=== PATIENT | male | born 1955 | race African-American/Black ===

== ENCOUNTER → 2016-10-24 | Outpatient (CLI) | payer OTHER ==
[~2016-10-24] MED LIST: AMOXICILLIN875 MG PO; ASPIRIN 32325 MG/TAB PO; CAVERJECT IMPU IC; CENTRUM SILVER1 TAB PO; CIALIS20 MG PO; CIALIS5 MG PO; CLEOCIN HCL300 MG PO; CRANBERRY1000 MG PO; CRESTOR20 MG PO; FLONASE NASAL S16 GM NS; LEXAPRO20 MG PO; LOPRESSOR 225 MG/TAB PO; LOW DOSE ASPIRI81 MG PO; MASON NATURAL1000 IU PO; MASON NATURAL1200 MG PO; NATURAL E400 IU PO; NATURAL POTASS595 MG PO; NORVASC 10MG10 MG PO; OMEPRAZOLE20 MG PO; PERCOCET 325 MG1 TA2 PO; PLAVIX 75MG TAB75 MG PO; PLETAL 100MG T100 MG PO; POTASSIUM GLUC595 MG PO; PRILOSEC 20MG20 MG PO; RT SPIRIVA18 MCG IH; SUPER EPA 1201200 MG PO; VIAGRA 25MG TAB25 MG PO; ZESTRIL40 MG PO; ZYRTEC 10MG10 MG PO; glucosamine; vit D; vit D2; vit E; vit c
== END ==
LOC: COL.RAD 14:00
DX: R26.89 Other abnormalities of gait and mobility (principal)
CPT/HCPCS: A9585

== ENCOUNTER → 2016-12-10 | Outpatient (CLI) | payer OTHER | LOC: COL.RAD 08:28 | DX: R31.0 Gross hematuria (principal); I70.0 Atherosclerosis of aorta; Z90.79 Acquired absence of other genital organ(s) | CPT/HCPCS: Q9967 ==

== ENCOUNTER 2016-12-13 10:35 | Day surgery (SDC) | payer OTHER ==
[2016-12-13] VITALS (10 sets, daily range): BP systolic 99–133; BP diastolic 65–74; PULSE 52–84; TEMP 97.8
[~2016-12-13] VITALS: Ht 183 cm; Wt 112.0 kg
[~2016-12-13 10:35] MED LIST changes: -AMOXICILLIN875 MG PO; -CENTRUM SILVER1 TAB PO; -CLEOCIN HCL300 MG PO; -PERCOCET 325 MG1 TA2 PO; -PRILOSEC 20MG20 MG PO
[2016-12-13] MEDS ORDERED: PRILOSEC 20MG20 MG PO (12:03)
[2016-12-13] MEDS ORDERED: LEXAPRO20 MG PO (12:05)
[2016-12-13] MEDS ORDERED: CENTRUM SILVER1 TAB PO (12:12)
[2016-12-13 12:26] LABS: INR 1.1 (0.8-3.0); PROTHROMBIN TIME 12.5 SECONDS (9.7-12.8)
[2016-12-13 12:27] LABS: HEMATOCRIT 42.6 % (42.0-52.0); HEMOGLOBIN 14.2 g/dl (13.5-18.0); MEAN CELL VOLUME 84 fl (80.0-100.0); MEAN CORPUSCULAR HEMOGLOBIN 28 pg (27.0-31.0); MEAN CORPUSCULAR HGB CONC 33 g/dl (33.0-37.0); MEAN PLATELET VOLUME 9.5 fl (7.4-10.4); PLATELET COUNT 267 K/mm3 (130-400); RED BLOOD COUNT 5.06 M/mm3 (4.20-5.60); REDCELL DISTRIBUTION WIDTH-CV 14.4 % (11.5-14.5); WHITE BLOOD COUNT 5.2 K/mm3 (4.8-10.8)
[2016-12-13 12:34] LABS: CALCIUM 9.5 mg/dL (8.4-10.2); CREATININE, serum 1.35 mg/dL (0.66-1.25)
== END 2016-12-13 18:49 | disposition home or self-care (01) ==
LOC: EUO 10:35 → COL.RAD 12:30 → EUO 18:49
PROVIDERS: Internal Medicine Interventional Cardiology
DX: I25.10 Atherosclerotic heart disease of native coronary artery without angina pectoris (principal); R94.39 Abnormal result of other cardiovascular function study; I73.9 Peripheral vascular disease, unspecified; I77.1 Stricture of artery; I95.1 Orthostatic hypotension; I10 Essential (primary) hypertension; E78.5 Hyperlipidemia, unspecified; J44.9 Chronic obstructive pulmonary disease, unspecified; Z87.891 Personal history of nicotine dependence; G47.30 Sleep apnea, unspecified
CPT/HCPCS: C1894; J2250; J3010; Q9967

== ENCOUNTER 2017-04-28 18:23 | Emergency (ER) | payer OTHER ==
[~2017-04-28] VITALS: Ht 182.9 cm; Wt 109.1 kg
[~2017-04-28 18:23] MED LIST changes: +CENTRUM SILVER1 TAB PO; +PRILOSEC 20MG20 MG PO
[2017-04-28 18:25] VITALS: TEMP 98.7
[2017-04-28] MEDS ORDERED: AMOXICILLIN875 MG PO (18:45)
[2017-04-28] MEDS ORDERED: PLETAL 100MG T100 MG PO (18:49)
[2017-04-28 19:03] LABS: BASO % 0.3 % (0.0-2.0); EOS % 0.1 % (0-4.0); GRAN # 10.5 (1.4-6.5); GRAN % 78.1 % (42.2-75.2); HEMATOCRIT 43.1 % (42.0-52.0); HEMOGLOBIN 14.9 g/dl (13.5-18.0); LYMPH # 1.9 (1.2-3.4); LYMPH % 13.8 % (20.0-51.0); MEAN CELL VOLUME 82 fl (80.0-100.0); MEAN CORPUSCULAR HEMOGLOBIN 28 pg (27.0-31.0); MEAN CORPUSCULAR HGB CONC 35 g/dl (33.0-37.0); MEAN PLATELET VOLUME 9.2 fl (7.4-10.4); MONO % 7.4 % (1.7-9.3); PLATELET COUNT 288 K/mm3 (130-400); RED BLOOD COUNT 5.27 M/mm3 (4.20-5.60); REDCELL DISTRIBUTION WIDTH-CV 14.3 % (11.5-14.5); WHITE BLOOD COUNT 13.5 K/mm3 (4.8-10.8)
[2017-04-28 19:16] LABS: ALBUMIN 4.2 gm/dL (3.5-5.0); C-REACTIVE PROTEIN 8.9 mg/dL (0.0-0.9); CALCIUM 9.2 mg/dL (8.4-10.2); CREATININE, serum 1.3 mg/dL (0.66-1.25); POTASSIUM 3.4 mmol/L (3.4-5.0); TOTAL PROTEIN 7.6 gm/dL (6.4-8.2)
[2017-04-28 20:01] VITALS: BP 155/81
[2017-04-28] MEDS ORDERED: CLEOCIN HCL300 MG PO (20:31)
[2017-04-28] MEDS ORDERED: PERCOCET 325 MG1 TA2 PO (20:31)
[2017-04-28 21:03] VITALS: PULSE 102
[2017-06-03] MEDS ORDERED: LEXAPRO20 MG PO (12:14)
== END 2017-04-28 21:05 | disposition home or self-care (01) ==
LOC: COL.ER 18:23
PROVIDERS: Physician Assistant
DX: K11.5 Sialolithiasis (principal); F32.9 Major depressive disorder, single episode, unspecified; E78.5 Hyperlipidemia, unspecified; I10 Essential (primary) hypertension; Z87.891 Personal history of nicotine dependence; Z98.890 Other specified postprocedural states
CPT/HCPCS: J7030; Q9967

== ENCOUNTER → 2017-04-29 | Outpatient (CLI) | payer OTHER ==
[~2017-04-29] MED LIST changes: +AMOXICILLIN875 MG PO; +CLEOCIN HCL300 MG PO; +PERCOCET 325 MG1 TA2 PO
== END ==
LOC: ZCOL.LAB 16:29
DX: K11.20 Sialoadenitis, unspecified (principal)

== ENCOUNTER → 2017-05-27 | Outpatient (CLI) | payer OTHER | LOC: COL.RAD 09:42 | DX: E04.1 Nontoxic single thyroid nodule (principal) ==

== ENCOUNTER → 2017-06-12 | Outpatient (CLI) | payer OTHER ==
[~2017-06-12] VITALS: Ht 182.9 cm; Wt 111.0 kg
[2017-06-12 09:30] VITALS: BP 151/76; PULSE 66
[2017-06-12 10:10] VITALS: BP 124/72; PULSE 59
== END ==
LOC: COL.RAD 06-05 09:00
DX: E04.1 Nontoxic single thyroid nodule (principal); Z90.79 Acquired absence of other genital organ(s); K11.20 Sialoadenitis, unspecified

== ENCOUNTER 2018-08-01 13:00 | Day surgery (SDC) | payer OTHER, MEDICARE ==
[~2018-08-01] VITALS: Ht 182.9 cm; Wt 119.6 kg
[2018-08-01] VITALS (11 sets, daily range): BP systolic 118–132; BP diastolic 62–81; PULSE 52–62; TEMP 98
[2018-08-01] MEDS ORDERED: COZAAR 50MG50 MG/TAB PO (13:33)
[2018-08-01] MEDS ORDERED: ISORDIL TITRADO30 MG PO (13:34)
[2018-08-01 13:35] LABS: HEMATOCRIT 45.3 % (42.0-52.0); HEMOGLOBIN 15.4 g/dl (13.5-18.0); MEAN CELL VOLUME 85 fl (80.0-100.0); MEAN CORPUSCULAR HEMOGLOBIN 29 pg (27.0-31.0); MEAN CORPUSCULAR HGB CONC 34 g/dl (33.0-37.0); MEAN PLATELET VOLUME 9.3 fl (7.4-10.4); PLATELET COUNT 308 K/mm3 (130-400); RED BLOOD COUNT 5.36 M/mm3 (4.20-5.60); REDCELL DISTRIBUTION WIDTH-CV 15.1 % (11.5-14.5)
[2018-08-01 13:37] LABS: INR 1.2 (0.8-3.0); PROTHROMBIN TIME 13.2 SECONDS (9.7-12.8)
[2018-08-01 13:42] LABS: CALCIUM 9.2 mg/dL (8.4-10.2); CREATININE, serum 1.29 mg/dL (0.66-1.25); POTASSIUM 3.8 mmol/L (3.4-5.0)
== END 2018-08-01 17:53 | disposition home or self-care (01) ==
LOC: COL.CAR 13:00
PROVIDERS: Internal Medicine Interventional Cardiology
DX: I25.10 Atherosclerotic heart disease of native coronary artery without angina pectoris (principal); G47.33 Obstructive sleep apnea (adult) (pediatric)
CPT/HCPCS: J1644; J2250; J3010; Q9967

== ENCOUNTER → 2019-01-07 | Outpatient (CLI) | payer OTHER, MEDICARE ==
[~2019-01-07] MED LIST changes: +COZAAR 50MG50 MG/TAB PO; +ISORDIL TITRADO30 MG PO
[2019-01-07 12:31] LABS: HEMATOCRIT 43.2 % (42.0-52.0); HEMOGLOBIN 14.4 g/dl (13.5-18.0); MEAN CELL VOLUME 83 fl (80.0-100.0); MEAN CORPUSCULAR HEMOGLOBIN 28 pg (27.0-31.0); MEAN CORPUSCULAR HGB CONC 33 g/dl (33.0-37.0); MEAN PLATELET VOLUME 9.2 fl (7.4-10.4); PLATELET COUNT 281 K/mm3 (130-400); RED BLOOD COUNT 5.22 M/mm3 (4.20-5.60); REDCELL DISTRIBUTION WIDTH-CV 14.9 % (11.5-14.5)
[2019-01-07 12:41] LABS: ANION GAP 10 mmol/L (7-16); BLOOD UREA NITROGEN 16 mg/dL (9-20); CALCIUM 9.3 mg/dL (8.4-10.2); CARBON DIOXIDE 24 mmol/L (22-30); CHLORIDE 106 mmol/L (98-107); CREATININE, serum 1.34 (0.66-1.25); GLUCOSE 115 mg/dL (74-106); POTASSIUM 3.9 mmol/L (3.4-5.0); SODIUM 140 mmol/L (137-145)
[2019-01-07 13:13] LABS: TROPONIN-I < 0.012 ng/mL (0.000-0.035)
== END ==
LOC: COL.LAB 12:02
PROVIDERS: Internal Medicine Interventional Cardiology
DX: R07.89 Other chest pain (principal)

== ENCOUNTER → 2019-01-08 | Outpatient (CLI) | payer OTHER, MEDICARE | LOC: COL.LAB 12:13 | DX: R07.89 Other chest pain (principal) ==

== ENCOUNTER → 2019-01-30 | Outpatient (CLI) | payer OTHER, MEDICARE | LOC: COL.PUL 07:54 | DX: R06.02 Shortness of breath (principal); Z87.891 Personal history of nicotine dependence ==

== ENCOUNTER → 2019-02-16 | Outpatient (CLI) | payer OTHER, MEDICARE ==
[~2019-02-16] MED LIST changes: +MEDROL 4MG DOSPA4 MG PO
== END ==
LOC: ZCOL.LAB 16:27
DX: K11.5 Sialolithiasis (principal)

== ENCOUNTER 2019-02-17 17:26 | Emergency (ER) | payer OTHER, MEDICARE ==
[~2019-02-17] VITALS: Ht 182.9 cm; Wt 111.4 kg
[~2019-02-17 17:26] MED LIST changes: -MEDROL 4MG DOSPA4 MG PO
[2019-02-17 17:36] VITALS: TEMP 96.7
[2019-02-17 18:46] LABS: BASO # 0.1 (0.0-0.2); BASO % 0.5 % (0.0-2.0); EOS # 0.1 (0.0-0.7); EOS % 1.1 % (0-4.0); GRAN % 73.7 % (42.2-75.2); HEMATOCRIT 45.4 % (42.0-52.0); HEMOGLOBIN 15.1 g/dl (13.5-18.0); LYMPH # 1.7 (1.2-3.4); LYMPH % 15.9 % (20.0-51.0); MEAN CELL VOLUME 82 fl (80.0-100.0); MEAN CORPUSCULAR HEMOGLOBIN 27 pg (27.0-31.0); MEAN CORPUSCULAR HGB CONC 33 g/dl (33.0-37.0); MEAN PLATELET VOLUME 9.2 fl (7.4-10.4); MONO # 0.9 (0.1-0.6); MONO % 8.4 % (1.7-9.3); PLATELET COUNT 312 K/mm3 (130-400); RED BLOOD COUNT 5.53 M/mm3 (4.20-5.60); REDCELL DISTRIBUTION WIDTH-CV 15.1 % (11.5-14.5)
[2019-02-17 19:00] LABS: ALANINE AMINOTRANSFERASE < 6 U/L (21-72); ALKALINE PHOSPHATASE 90 U/L (50-136); ANION GAP 9 mmol/L (7-16); AST,SGOT 21 U/L (15-37); BILIRUBIN,TOTAL 0.5 mg/dL (0.0-1.0); BLOOD UREA NITROGEN 15 mg/dL (9-20); C-REACTIVE PROTEIN 3.7 mg/dL (0.0-0.9); CARBON DIOXIDE 25 mmol/L (22-30); CHLORIDE 103 mmol/L (98-107); CREATININE, serum 1.33 (0.66-1.25); GLUCOSE 80 mg/dL (74-106); POTASSIUM 3.8 mmol/L (3.4-5.0); SODIUM 138 mmol/L (137-145); TOTAL PROTEIN 7.6 gm/dL (6.4-8.2)
[2019-02-17] MEDS ORDERED: MEDROL 4MG DOSPA4 MG PO (20:20)
[2019-02-17 20:53] VITALS: BP 139/80; PULSE 84
== END 2019-02-17 20:53 | disposition home or self-care (01) ==
LOC: COL.ER 17:26
PROVIDERS: Emergency Medicine
DX: K11.5 Sialolithiasis (principal); K11.20 Sialoadenitis, unspecified; I25.10 Atherosclerotic heart disease of native coronary artery without angina pectoris; I10 Essential (primary) hypertension; J44.9 Chronic obstructive pulmonary disease, unspecified; Z79.82 Long term (current) use of aspirin; Z79.02 Long term (current) use of antithrombotics/antiplatelets; E11.9 Type 2 diabetes mellitus without complications; Z79.51 Long term (current) use of inhaled steroids
CPT/HCPCS: J1100; J2270; J2405; J7030; Q9967

== ENCOUNTER → 2019-02-26 | Outpatient (CLI) | payer OTHER, MEDICARE ==
[~2019-02-26] MED LIST changes: +MEDROL 4MG DOSPA4 MG PO
[2019-03-02 13:03] LABS: A1 PHENOTYPE 133 mg/dL (())
== END ==
LOC: COL.LAB 16:46
PROVIDERS: Internal Medicine Pulmonary Disease
DX: J32.9 Chronic sinusitis, unspecified (principal); J44.9 Chronic obstructive pulmonary disease, unspecified

== ENCOUNTER → 2019-04-06 | Outpatient (CLI) | payer OTHER, MEDICARE | LOC: ZCOL.LAB 17:07 | DX: T14.8XXA Other injury of unspecified body region, initial encounter (principal) ==

== ENCOUNTER → 2019-11-13 | Outpatient (CLI) | payer OTHER, MEDICARE | LOC: COL.LAB 10:01 | DX: R63.5 Abnormal weight gain (principal) ==

== ENCOUNTER 2020-04-19 13:12 | Emergency (ER) | payer OTHER, MEDICARE ==
[~2020-04-19] VITALS: Ht 182.9 cm; Wt 110.5 kg
[2020-04-19 13:19] VITALS: TEMP 97.8
[2020-04-19 13:38] LABS: BASO % 0.3 % (0.0-2.0); EOS # 0.1 (0.0-0.7); EOS % 0.5 % (0-4.0); GRAN # 9.7 (1.4-6.5); GRAN % 74.2 % (42.2-75.2); HEMATOCRIT 43.9 % (42.0-52.0); HEMOGLOBIN 14.8 g/dl (13.5-18.0); LYMPH # 2.2 (1.2-3.4); LYMPH % 16.8 % (20.0-51.0); MEAN CELL VOLUME 82 fl (80.0-100.0); MEAN CORPUSCULAR HEMOGLOBIN 28 pg (27.0-31.0); MEAN CORPUSCULAR HGB CONC 34 g/dl (33.0-37.0); MEAN PLATELET VOLUME 9.1 fl (7.4-10.4); MONO % 7.9 % (1.7-9.3); PLATELET COUNT 276 K/mm3 (130-400); RED BLOOD COUNT 5.36 M/mm3 (4.20-5.60); REDCELL DISTRIBUTION WIDTH-CV 17.3 % (11.5-14.5)
[2020-04-19] MEDS ORDERED: PROTONIX 40MG T40 MG PO (13:48)
[2020-04-19] MEDS ORDERED: LEXAPRO20 MG PO (13:49)
[2020-04-19 13:51] LABS: ALBUMIN 4.4 gm/dL (3.5-5.0); BILIRUBIN,TOTAL 0.9 mg/dL (0.0-1.0); C-REACTIVE PROTEIN 7.2 mg/dL (0.0-0.9); CALCIUM 9.4 mg/dL (8.4-10.2); CREATININE, serum 1.61 (0.66-1.25); POTASSIUM 3.5 mmol/L (3.4-5.0); TOTAL PROTEIN 7.9 gm/dL (6.4-8.2)
[2020-04-19] MEDS ORDERED: NITROSTAT0.4 MG/TAB SL (13:51)
[2020-04-19] MEDS ORDERED: PLAVIX 75MG TAB75 MG PO (13:51)
[2020-04-19] MEDS ORDERED: TOPROL XL 50MG50 MG PO (13:52)
[2020-04-19] MEDS ORDERED: GLUCOPHAGE XR750 MG PO (13:53)
[2020-04-19] MEDS ORDERED: VITAMIN D31000 I1 PO (13:54)
[2020-04-19] MEDS ORDERED: HCTZ 25MG TAB25 MG PO (13:55)
[2020-04-19] MEDS ORDERED: THE MEDICINE S200 M2 PO (13:55)
[2020-04-19] MEDS ORDERED: MASON NATURAL1200 MG PO (13:56)
[2020-04-19 14:30] LABS: COLLECTION METHOD CLEAN CATCH
[2020-04-19 14:45] LABS: PH 6 (5-8); SQUAMOUS EPITHELIAL None Seen /hpf; URINE APPEARANCE Clear; URINE BACTERIA None Seen /hpf; URINE BILIRUBIN Negative (NEGATIVE); URINE BLOOD 2+ (NEGATIVE); URINE COLOR Yellow; URINE GLUCOSE Negative (NEGATIVE); URINE KETONE Negative (NEGATIVE); URINE LEUKOCYTE ESTERASE Negative (NEGATIVE); URINE NITRATE Negative (NEGATIVE); URINE PROTEIN(semi-quant) Negative (NEGATIVE); URINE UROBILINOGEN Negative (NEGATIVE)
[2020-04-19] MEDS ORDERED: AMOXICILLIN 8751 TAB PO (15:00)
--- NOTE | 2020-04-19 16:32 | NUR ---
Chemicals Distiller received consult from the ED for the patient due to needing oxygen. The patient's primary is insurance is a private company and it would cover oxygen from the ED. JODI faxed oxygen order, RT exercise oxyimetry and HNP to [facility]. They will deliver the oxygen. JODI collaborated the above information with the patient's nurse.
[2020-04-19 17:31] VITALS: BP 120/64; PULSE 60
== END 2020-04-19 17:31 | disposition home or self-care (01) ==
LOC: COL.ER 13:12
PROVIDERS: Emergency Medicine
DX: K57.92 Diverticulitis of intestine, part unspecified, without perforation or abscess without bleeding (principal); J44.9 Chronic obstructive pulmonary disease, unspecified; I10 Essential (primary) hypertension; E78.5 Hyperlipidemia, unspecified; E11.9 Type 2 diabetes mellitus without complications; Z79.02 Long term (current) use of antithrombotics/antiplatelets; Z79.84 Long term (current) use of oral hypoglycemic drugs; Z85.46 Personal history of malignant neoplasm of prostate
CPT/HCPCS: J2270; J2405; J2543; J7030; Q9967

== ENCOUNTER → 2021-01-12 | Outpatient (CLI) | payer OTHER, MEDICARE ==
[~2021-01-12] MED LIST changes: +AMOXICILLIN 8751 TAB PO; +GLUCOPHAGE XR750 MG PO; +HCTZ 25MG TAB25 MG PO; +NITROSTAT0.4 MG/TAB SL; +PROTONIX 40MG T40 MG PO; +THE MEDICINE S200 M2 PO; +TOPROL XL 50MG50 MG PO; +VITAMIN D31000 I1 PO
[2021-01-12 21:59] LABS: TROPONIN-I < 0.012 ng/mL (0.000-0.035)
== END ==
LOC: ZCOL.LAB 17:17
PROVIDERS: Nurse Practitioner
DX: R07.9 Chest pain, unspecified (principal)

== ENCOUNTER → 2021-01-12 | Outpatient (CLI) | payer MEDICARE, OTHER | LOC: ZCOL.LAB 22:15 | DX: R07.9 Chest pain, unspecified (principal) ==

== ENCOUNTER → 2021-01-26 | Outpatient (CLI) | payer OTHER, MEDICARE | LOC: COL.RAD 13:58 | DX: M22.41 Chondromalacia patellae, right knee (principal) ==

== ENCOUNTER → 2021-05-31 | Outpatient (CLI) | payer MEDICARE, OTHER | LOC: COL.RAD 05-29 13:30 | DX: Z12.2 Encounter for screening for malignant neoplasm of respiratory organs (principal); J43.9 Emphysema, unspecified; I25.10 Atherosclerotic heart disease of native coronary artery without angina pectoris; K57.90 Diverticulosis of intestine, part unspecified, without perforation or abscess without bleeding; Z87.891 Personal history of nicotine dependence ==

== ENCOUNTER → 2021-06-20 | Outpatient (CLI) | payer MEDICARE, OTHER ==
[2021-06-20 11:27] LABS: HEMATOCRIT 47.7 % (42.0-52.0); HEMOGLOBIN 15.9 g/dl (13.5-18.0); MEAN CELL VOLUME 80 fl (80.0-100.0); MEAN CORPUSCULAR HEMOGLOBIN 27 pg (27.0-31.0); MEAN CORPUSCULAR HGB CONC 33 g/dl (33.0-37.0); MEAN PLATELET VOLUME 9.2 fl (7.4-10.4); PLATELET COUNT 317 K/mm3 (130-400); RED BLOOD COUNT 5.95 M/mm3 (4.20-5.60); REDCELL DISTRIBUTION WIDTH-CV 18.6 % (11.5-14.5)
[2021-06-20 11:43] LABS: ANION GAP 11 mmol/L (7-16); BLOOD UREA NITROGEN 14 mg/dL (8-26); CALCIUM 9.8 mg/dL (8.4-10.2); CARBON DIOXIDE 26 mmol/L (23-31); CHLORIDE 103 mmol/L (98-107); CREATININE, serum 1.82 mg/dL (0.72-1.25); GLUCOSE 114 mg/dL (70-99); POTASSIUM 3.2 mmol/L (3.5-4.5); SODIUM 140 mmol/L (136-145)
[2021-06-20 12:04] LABS: THYROID STIMULATING HORMONE 0.832 uIU/mL (0.350-4.940)
[2021-06-20 12:05] LABS: TROPONIN-I < 0.010 ng/mL (0.00-0.033)
== END ==
LOC: COL.LAB 10:31 → COL.RAD 10:32 → COL.LAB 10:40 → COL.RAD 10:40
PROVIDERS: Nurse Practitioner
DX: R07.89 Other chest pain (principal); R53.83 Other fatigue; R09.81 Nasal congestion; Z20.822 Contact with and (suspected) exposure to COVID-19

== ENCOUNTER 2021-08-11 11:30 | Day surgery (SDC) | payer OTHER, MEDICARE ==
[2021-08-11] VITALS (11 sets, daily range): BP systolic 130–158; BP diastolic 74–113; PULSE 56–80; TEMP 98.2
[~2021-08-11] VITALS: Ht 180.3 cm; Wt 112.5 kg
[~2021-08-11 11:30] MED LIST changes: +GLUCOPHAGE XR500 M1 PO; -GLUCOPHAGE XR750 MG PO; -TOPROL XL 50MG50 MG PO; +TOPROL XL200 MG PO
[2021-08-11 12:35] LABS: HEMATOCRIT 44.7 % (42.0-52.0); HEMOGLOBIN 15.2 g/dl (13.5-18.0); MEAN CELL VOLUME 81 fl (80.0-100.0); MEAN CORPUSCULAR HEMOGLOBIN 28 pg (27.0-31.0); MEAN CORPUSCULAR HGB CONC 34 g/dl (33.0-37.0); MEAN PLATELET VOLUME 9.2 fl (7.4-10.4); PLATELET COUNT 328 K/mm3 (130-400); RED BLOOD COUNT 5.53 M/mm3 (4.20-5.60); REDCELL DISTRIBUTION WIDTH-CV 17.2 % (11.5-14.5)
[2021-08-11] MEDS ORDERED: ZYRTEC 10MG10 MG PO (12:36)
[2021-08-11 12:37] LABS: INR 1.2 (0.8-3.0); PROTHROMBIN TIME 13.6 SECONDS (9.7-12.8)
--- NOTE | 2021-08-11 12:37 | NUR ---
SEE MERGE FOR ALL MEDICATION ADMINISTRATION TIMES/DOSAGES AND INTRA/POST PROCEDURE SEDATION ASSESSMENTS.
[2021-08-11] MEDS ORDERED: TRELEGY ELLIPT1 EACH IH (12:38)
[2021-08-11 12:40] LABS: PARTIAL THROMBOPLASTIN TIME 36.8 SECONDS (26.0-37.0)
[2021-08-11] MEDS ORDERED: ZOLOFT 50MG50 MG PO (12:41)
[2021-08-11] MEDS ORDERED: RANEXA 500MG T500 MG PO (12:41)
[2021-08-11] MEDS ORDERED: AXIRON30 MG/1.5 TP (12:42)
[2021-08-11 12:43] LABS: CREATININE, serum 1.68 mg/dL (0.72-1.25); POTASSIUM 3.7 mmol/L (3.5-4.5)
[2021-08-11] MEDS ORDERED: PROAIR HFA0.09 MG/AC IH (12:43)
--- NOTE | 2021-08-11 14:01 | NUR ---
Pt returned from procedure.Per Valencia blevins pt to receive rest of IV fluids in bag then stop.
[2021-08-11] MEDS ORDERED: RANEXA1000 MG PO (14:11)
--- NOTE | 2021-08-11 16:38 | NUR ---
Discharge instructions given to pt.Pt verbalizes understanding.INT removed,catheter tip intact.Pt escorted out via wheelchair by this nurse.
== END 2021-08-11 16:44 ==
LOC: COL.CAR 11:30
PROVIDERS: Internal Medicine Interventional Cardiology
DX: I25.119 Atherosclerotic heart disease of native coronary artery with unspecified angina pectoris (principal); R94.39 Abnormal result of other cardiovascular function study; I10 Essential (primary) hypertension; Z79.899 Other long term (current) drug therapy; Z79.02 Long term (current) use of antithrombotics/antiplatelets; Z90.79 Acquired absence of other genital organ(s)
CPT/HCPCS: C1760; C1769; C1894; J1644; J2250; J3010; Q9967

== ENCOUNTER 2021-08-28 11:15 | Day surgery (SDC) | payer OTHER, MEDICARE ==
[~2021-08-28] VITALS: Ht 180.3 cm; Wt 113.0 kg
[~2021-08-28 11:15] MED LIST changes: +AXIRON30 MG/1.5 TP; +PROAIR HFA0.09 MG/AC IH; +RANEXA 500MG T500 MG PO; +RANEXA1000 MG PO; +TRELEGY ELLIPT1 EACH IH; +ZOLOFT 50MG50 MG PO
--- NOTE | 2021-08-28 11:30 | NUR ---
66 year old patient admitted to [facility] bay #7 via ambulation. Patient is alert and oriented x3. is present in the waiting room. Procedure verified and consent signed. First and last name + confirmed. Medications and HX reviewed. Vitals obatined. Patient changed into a clean gown. Non-slip socks are on. Call avendano is at bedside. Patient it watching TV. Two failed attempts at IV start, pressure and bandaid applied. RENATO Anaya to help with IV start. Side rails x2
[2021-08-28] MEDS ORDERED: TRELEGY ELLIPT1 EACH IH (11:51)
[2021-08-28] MEDS ORDERED: GLUCOPHAGE XR750 MG PO (11:51)
[2021-08-28] MEDS ORDERED: PROVENTIL0.09 MG/A1 IH (11:52)
[2021-08-28] MEDS ORDERED: TESTO (11:53)
[2021-08-28 12:20] VITALS: BP 128/66; PULSE 56; TEMP 97.5
--- NOTE | 2021-08-28 13:17 | NUR ---
HEAD OF PRECISION TARGETING in to speak with the patient.
[2021-08-28] MEDS ORDERED: NORCO 325 MG-51 TAB PO (13:34)
[2021-08-28 14:29] VITALS: BP 107/50; PULSE 55; TEMP 96.9
--- NOTE | 2021-08-28 14:29 | NUR ---
Patient arrived on cart from the OR after recieving moderate sedation. Patient is drowsy but oriented. Vitals obtained. O2 stats present low, but after repositioning the patient, deep breathing and coughing the stats thor to 92% on room air. HEMSTITCHER verbalized that this was fine. is present. Patient requested ice chips and a Pepsi to drink. Will continue to monitor per intervals. Side rails x2. Call avendano is at bedside.
[2021-08-28 14:44] VITALS: BP 103/53; PULSE 51
--- NOTE | 2021-08-28 14:44 | NUR ---
Patient is more alert and oriented. He is tolerating his Pepsi and ice chips. Vitals obtained. SO2 stats have stayed above 90%. Patient requested toast with grape jelly.
[2021-08-28 14:59] VITALS: BP 125/58; PULSE 55
--- NOTE | 2021-08-28 14:59 | NUR ---
Patient is tolerating his toast well. Denies neasea and requested a second piece of toast. Expressed desire to be discharged. Vitals obtained.
--- NOTE | 2021-08-28 15:10 | NUR ---
IV discontinued at this time due to impending discharge. Catheter tip intact. Pressure dressing applied. No swelling or redness noted. One side rail lowered for the patient to get out of bed. Patient denied needing assistance and was able to sit at bedside. Denied dizziness. Patient stated his would help him get changed.
--- NOTE | 2021-08-28 15:20 | NUR ---
Discharge instructions and educational material reviewed. Patient verbalized understanding of material and signed the related paperwork. Discharge packet was given to his , who put it in her bag. Patient stated he was ready for discharge.
--- NOTE | 2021-08-28 15:35 | NUR ---
Patient was escorted out to the patient entrence by RENATO Maxwell at this time. His is present to drive and has the discharge instructions, educational material and the patient belongings. Both denied having any further questions or concerns. Patient was transferred into the care of his at this time, who is present to drive. The patient is in the front passanger seat, wearing his seat belt.
== END 2021-08-28 15:35 | disposition home or self-care (01) ==
LOC: SDCO 11:15
DX: K42.0 Umbilical hernia with obstruction, without gangrene (principal); I12.0 Hypertensive chronic kidney disease with stage 5 chronic kidney disease or end stage renal disease; N18.6 End stage renal disease; J44.9 Chronic obstructive pulmonary disease, unspecified; E78.00 Pure hypercholesterolemia, unspecified; G47.33 Obstructive sleep apnea (adult) (pediatric); I25.10 Atherosclerotic heart disease of native coronary artery without angina pectoris; E78.5 Hyperlipidemia, unspecified; I73.9 Peripheral vascular disease, unspecified; Z95.818 Presence of other cardiac implants and grafts; Z79.02 Long term (current) use of antithrombotics/antiplatelets; Z95.828 Presence of other vascular implants and grafts; Z79.899 Other long term (current) drug therapy; Z85.46 Personal history of malignant neoplasm of prostate; Z79.890 Hormone replacement therapy; Z79.51 Long term (current) use of inhaled steroids
CPT/HCPCS: C1781; J7120

== ENCOUNTER → 2022-12-05 | Outpatient (CLI) | payer MEDICARE, OTHER ==
[~2022-12-05] MED LIST changes: +GLUCOPHAGE XR750 MG PO; +NORCO 325 MG-51 TAB PO; +PROVENTIL0.09 MG/A1 IH; +TESTO
== END ==
LOC: COL.RAD 09:22
DX: M47.27 Other spondylosis with radiculopathy, lumbosacral region (principal); M51.17 Intervertebral disc disorders with radiculopathy, lumbosacral region; M48.061 Spinal stenosis, lumbar region without neurogenic claudication

== ENCOUNTER → 2022-12-31 | Outpatient (CLI) | payer OTHER, MEDICARE | LOC: COL.RAD 09:24 | DX: Z12.2 Encounter for screening for malignant neoplasm of respiratory organs (principal); R91.1 Solitary pulmonary nodule; J43.2 Centrilobular emphysema; Z87.891 Personal history of nicotine dependence ==

== ENCOUNTER → 2023-02-11 | Outpatient (CLI) | payer OTHER | LOC: COL.RAD 02-08 11:00 | DX: E04.1 Nontoxic single thyroid nodule (principal); R91.1 Solitary pulmonary nodule; J43.9 Emphysema, unspecified ==

== ENCOUNTER → 2023-05-16 | Outpatient (CLI) | payer OTHER | LOC: MHCPAIN 13:01 | DX: M48.061 Spinal stenosis, lumbar region without neurogenic claudication (principal); M54.16 Radiculopathy, lumbar region | CPT/HCPCS: J1100; Q9967 ==

== ENCOUNTER 2024-04-07 14:49 | Observation (INO) | payer MEDICARE, OTHER ==
[~2024-04-07] VITALS: Ht 180.3 cm; Wt 105.0 kg
[2024-04-07 15:27] LABS: BASO % 0.4 % (0.0-2.0); EOS # 0.1 K/mm3 (0.0-0.7); EOS % 1.5 % (0.0-4.0); GRAN # 5.5 K/mm3 (1.4-6.5); GRAN % 70.2 % (42.2-75.2); HEMATOCRIT 42.9 % (42.0-52.0); HEMOGLOBIN 14.7 g/dl (13.5-18.0); LYMPH # 1.6 K/mm3 (1.2-3.4); LYMPH % 20.2 % (20.0-51.0); MEAN CELL VOLUME 86 fl (80.0-100.0); MEAN CORPUSCULAR HEMOGLOBIN 30 pg (27-31); MEAN CORPUSCULAR HGB CONC 34 g/dl (33.0-37.0); MEAN PLATELET VOLUME 8.8 fl (7.4-10.4); MONO # 0.6 K/mm3 (0.1-0.6); MONO % 7.4 % (1.7-9.3); PLATELET COUNT 283 K/mm3 (130-400); RED BLOOD COUNT 4.97 M/mm3 (4.20-5.60); REDCELL DISTRIBUTION WIDTH-CV 14.4 % (11.5-14.5)
[2024-04-07 15:41] LABS: ALANINE AMINOTRANSFERASE 34 U/L (0-55); ALBUMIN 3.8 g/dL (3.4-4.8); ALKALINE PHOSPHATASE 61 U/L (40-150); ANION GAP 8 mmol/L (7-16); AST,SGOT 24 U/L (5-34); BILIRUBIN,TOTAL 0.4 mg/dL (0.2-1.2); BLOOD UREA NITROGEN 13 mg/dL (8-26); CALCIUM 9.5 mg/dL (8.4-10.2); CHLORIDE 107 mEq/L (98-107); CREATININE, serum 1.48 mg/dL (0.72-1.25); GLUCOSE 94 mg/dL (70-99); POTASSIUM 4.2 mEq/L (3.5-4.5); SODIUM 138 mEq/L (136-145)
[2024-04-07 15:46] LABS: TROPONIN-I < 0.010 ng/mL (0.00-0.033)
[2024-04-07 15:55] VITALS: BP 133/79
[2024-04-07] MEDS ORDERED: PRINIVIL20 MG PO (17:36)
[2024-04-07] MEDS ORDERED: ASPIRIN 81M81 MG/TA2 PO (17:38)
[2024-04-07] MEDS ORDERED: MAGNESIUM250 M1 PO (17:38)
[2024-04-07] MEDS ORDERED: *Potassium Replacement Protocol MC SCH (17:45)
[2024-04-07] MEDS ORDERED: ZOLOFT 100MG100 MG PO (17:49)
[2024-04-07] MEDS ORDERED: WEGOVY1 MG/0.5 M SQ (17:56)
[2024-04-07] MEDS ORDERED: Heparin 5,000 UNITS/ML 1 ML VIAL IV ONE (18:00)
[2024-04-07] MEDS ORDERED: Heparin/D5W 250 ML IV SCH (18:00)
[2024-04-07] MEDS ORDERED: Heparin 5,000 UNITS/ML 1 ML VIAL IV PRN (18:00)
--- NOTE | 2024-04-07 18:00 | NUR ---
Pt arrived in room from ER. Pt assessment complete. Med Rec Tech completed Med Rec in ER. Verified Pt's pharmacy and allergies. Pt addmission complete. Pt on 2 L O2 via NC, clear lungs. Pt denies chest pain at this time. Oriented Pt and (Cheri) to room. No further needs at this time. Call light in reach.
[2024-04-07 18:09] VITALS: BP_SYST 145
[2024-04-07 18:11] VITALS: BP 145/84; PULSE 67; TEMP 98.1
[2024-04-07 18:44] LABS: PARTIAL THROMBOPLASTIN TIME 34.8 SECONDS (26.0-37.0)
[2024-04-07 18:45] LABS: INR 1.2 (0.8-3.0); PROTHROMBIN TIME 12.7 SECONDS (9.7-12.8)
--- NOTE | 2024-04-07 19:03 | NUR ---
PATIENT SITTING UP IN BED EATING SUBWAY WITH TV ON WITH AT BEDSIDE WITH NO ACUTE DISTRESS NOTED. PATIENT ON 2 LITERS OF OXYGEN VIA NC. INT TO LEFT HAND INTACT WITH NO COMPLICATIONS NOTED. TELEMETRY INTACT. BEDSIDE REPORT COMPLETED AT THIS TIME WITH KAMAR. PATIENT DENIES ANY NEEDS. BED IN LOW POSITION WITH WHEELS LOCKED WITH RAILS UP X2 AND CALL LIGHT WITHIN REACH.
[2024-04-07 19:50] VITALS: BP 150/75; PULSE 70; TEMP 97.7
[2024-04-07 20:15] VITALS: BP_SYST 150
--- NOTE | 2024-04-07 20:15 | NUR ---
PATIENT RESTING IN BED WITH TV ON WITH NO FAMILY PRESENT WITH NO ACUTE DISTRESS NOTED. PATIENT ON 2 LITERS OF OXYGEN VIA NC. INT TO LEFT HAND INTACT WITH NO COMPLICATIONS NOTED. ASSESSMENT AND MEDICATION ADMINISTRATION COMPLETED AT THIS TIME. PATIENT REQUESTED TO GO TO THE BATHROOM PRIOR TO THE START OF HIS HEPARIN DRIP. PATIENT VOIDED. GAIT STEADY. PATIENT TOLERATED WELL. OXYGEN EXTENTION GIVEN. BLINDS CLOSED. PATIENT DENIES ANY OTHER NEEDS. BED IN LOW POSITION WITH WHEELS LOCKED WITH RAILS UP X2 AND CALL LIGHT WITHIN REACH.
[2024-04-07 23:52] VITALS: BP 133/76; BP 135/74; PULSE 65; PULSE 73; TEMP 98.1; TEMP 98.6
[2024-04-08] VITALS (8 sets, daily range): BP systolic 126–144; BP diastolic 75–83; PULSE 66–74; TEMP 97.9–98.2
[2024-04-08 02:38] LABS: BASO % 0.5 % (0.0-2.0); EOS # 0.1 K/mm3 (0.0-0.7); EOS % 1.9 % (0.0-4.0); GRAN # 4.9 K/mm3 (1.4-6.5); GRAN % 65.4 % (42.2-75.2); HEMATOCRIT 40.9 % (42.0-52.0); HEMOGLOBIN 14.1 g/dl (13.5-18.0); LYMPH # 1.9 K/mm3 (1.2-3.4); LYMPH % 25.4 % (20.0-51.0); MEAN CELL VOLUME 85 fl (80.0-100.0); MEAN CORPUSCULAR HEMOGLOBIN 29 pg (27-31); MEAN CORPUSCULAR HGB CONC 35 g/dl (33.0-37.0); MEAN PLATELET VOLUME 9.1 fl (7.4-10.4); MONO # 0.5 K/mm3 (0.1-0.6); MONO % 6.7 % (1.7-9.3); PLATELET COUNT 257 K/mm3 (130-400); REDCELL DISTRIBUTION WIDTH-CV 14.2 % (11.5-14.5)
[2024-04-08 02:55] LABS: ALBUMIN 3.4 g/dL (3.4-4.8); CALCIUM 9.3 mg/dL (8.4-10.2); CREATININE, serum 1.54 mg/dL (0.72-1.25); PHOSPHOROUS 3.2 mg/dL (2.3-4.7); POTASSIUM 3.9 mEq/L (3.5-4.5)
--- NOTE | 2024-04-08 08:09 | NUR ---
Abiel Garcia APRN notified by RENATO Cordova of consult at 0740.
[2024-04-08 09:26] LABS: AMYLASE 41 U/L (25-125); LIPASE 34 U/L (8-78)
--- NOTE | 2024-04-08 09:34 | NUR ---
No change in Heparin rate per protocol.
[2024-04-08] MEDS ORDERED: Sertraline 100 MG TAB PO SCH (09:41)
[2024-04-08] MEDS ORDERED: Clopidogrel 75 MG TAB PO SCH (09:41)
[2024-04-08] MEDS ORDERED: Sertraline 50 MG TAB PO SCH (09:41)
[2024-04-08] MEDS ORDERED: Ranolazine ER 500 MG TAB PO SCH (09:41)
[2024-04-08] MEDS ORDERED: amLODIPine 10 MG TAB PO SCH (09:41)
[2024-04-08] MEDS ORDERED: Magnesium Gluconate 500 MG TAB PO SCH (09:41)
--- NOTE | 2024-04-08 09:42 | NUR ---
farrowing worker met with pt and his , Radha [phone] to discuss discharge planning. He reports to live with his in [place]. He sees MISHA Mosley for PCP needs and obtains medications from [facility] with no difficulties. He confirmed his insurance as Medicare A and B, [employer], and [employer]. He reports to be independent with ADLS and uses oxygen at 2L and a CPAP with [facility] for DME. He does not have a DPOA-HC and is agreeable to his being NOK. He has no concerns for mobility and falls. PT/OT Pending Discharge Plan: home
[2024-04-08] MEDS ORDERED: Albuterol 0.021% Neb Soln 0.63 MG/3 ML UD IH PRN (09:45)
[2024-04-08] MEDS ORDERED: Cetirizine 10 MG TAB PO PRN (09:45)
[2024-04-08] MEDS ORDERED: Potassium Bicarbonate/Citrate 20 MEQ Effervescent TAB PO ONE (09:45)
[2024-04-08] MEDS ORDERED: *Potassium Replacement Protocol MC SCH (09:45)
--- NOTE | 2024-04-08 10:30 | NUR ---
PATIENT ALERT AND ORIENTED X4. PATIENT ON 2L 02/. PATIENT ON TELEMETRY AND HEPARIN GTT PER EMAR PROTOCOL. PPATIENT DENIES PAIN AT THIS TIME. PATIENT SHIFT ASSESSMENT COMPLETED. PATIENT HAS SCAR TO MIDCHEST. CALL LIGHT WITHIN REACH. BED AT LOWEST POSITION.
--- NOTE | 2024-04-08 10:48 | NUR ---
D: Seed Expert stopped by room on rounds. A: Pt was resting and content with in the room. Pt has no needs right now. Seed Expert prayed with pt and and both appreciated the visit. P: Seed Expert informed pt that if he needed anything from the locks inspector area to let his nurse know. Seed Expert will follow up as needed.
[2024-04-08] MEDS ORDERED: TYLENOL 8 HR PO (11:41)
[2024-04-08] MEDS ORDERED: NORCO 325 MG-51 TAB PO (11:41)
[2024-04-08] MEDS ORDERED: CARAFATE 1GM1 G PO (11:43)
--- NOTE | 2024-04-08 16:35 | NUR ---
PATIENT DISCHARGE INSTRUCTIONS GIVEN.PATIENT DENIED ANY QUESTIONS. IV REMOVED AND TELE DISCONTINUED. PATIENT ESCORTED OUT OF UNIT BY PCT.
[2024-04-08] MEDS ORDERED: Atorvastatin 40 MG TAB PO SCH (21:00)
[2024-04-08] MEDS ORDERED: Lisinopril 20 MG TAB PO SCH (21:00)
[2024-04-08] MEDS ORDERED: Rosuvastatin 20 MG **** subs to Atorvastatin 40 MG PO SCH (21:00)
== END 2024-04-08 16:40 | disposition home or self-care (01) ==
LOC: COL.ER 14:49 → MEDICAL 16:38
PROVIDERS: Emergency Medicine; Nurse Practitioner; Nurse Practitioner Family; ADMIT Internal Medicine
DX: R07.9 Chest pain, unspecified (principal); J96.20 Acute and chronic respiratory failure, unspecified whether with hypoxia or hypercapnia; J44.9 Chronic obstructive pulmonary disease, unspecified; I13.10 Hypertensive heart and chronic kidney disease without heart failure, with stage 1 through stage 4 chronic kidney disease, or unspecified chronic kidney disease; N18.9 Chronic kidney disease, unspecified; I25.10 Atherosclerotic heart disease of native coronary artery without angina pectoris; E78.5 Hyperlipidemia, unspecified; F32.A Depression, unspecified; Z95.5 Presence of coronary angioplasty implant and graft; Z95.820 Peripheral vascular angioplasty status with implants and grafts; Z85.46 Personal history of malignant neoplasm of prostate; Z79.01 Long term (current) use of anticoagulants; Z79.899 Other long term (current) drug therapy; Z70.2 Counseling related to sexual behavior and orientation of third party; Z79.82 Long term (current) use of aspirin
CPT/HCPCS: G0378; J1644